=== PATIENT | female | born 1955 | race Caucasian/White ===

== ENCOUNTER 2018-02-16 20:52 | Observation (INO) ==
[2018-02-16 21:38] LABS: Basophils # 0.1 K/mcL (0.0-0.2); Basophils % 0.8 %; Eosinophils # 0.5 K/mcL (0.0-0.6); Eosinophils % 6.1 %; Hematocrit 34.5 % (35.3-44.9); Hemoglobin 11.7 g/dL (11.5-15.4); Immature Granulocytes % 0.2 % (0-4); Lymphocytes # 2.9 K/mcL (0.6-4.6); Lymphocytes % 35.3 %; Mean Corpuscular HGB Conc 33.9 g/dL (31.6-35.5); Mean Corpuscular Hemoglobin 31.6 pg (28.0-33.3); Mean Corpuscular Volume 93.2 fL (83.0-100.0); Mean Platelet Volume 9.2 fL (9.4-12.4); Monocytes # 0.7 K/mcL (0.0-1.3); Monocytes % 7.8 %; Neutrophils # 4.2 K/mcL (1.6-8.9); Platelet Count 236 K/mcL (140-400); Red Cell Distribution Width 12.7 % (11.5-14.5); Segmented Neutrophils % 49.8 %
[2018-02-16 21:52] LABS: Bilirubin,Urine Negative (Negative); Blood,Urine Negative (Negative); Clarity,Urine Clear (Clear); Color,Urine Yellow (Yellow); Glucose,Urine (UA) Normal (Normal); Ketones,Urine Negative (Negative); Leukocyte Esterase,Urine Negative (Negative); Nitrite,Urine Negative (Negative); Protein,Urine Negative (Neg-Trace); Specific Gravity,Urine 1.012 (1.010-1.025); Urobilinogen,Urine Normal (Normal)
[2018-02-16 21:56] LABS: Acetaminophen < 10 mcg/mL (10-20)
[2018-02-16 22:02] LABS: Amphetamine Screen,Urine Negative ng/mL (Cutoff=1000); Barbiturate Screen,Urine Negative ng/mL (Cutoff=200); Benzodiazepines Screen,Urine Positive ng/mL (Cutoff=200); Cannabinoid Screen,Urine Negative ng/mL (Cutoff = 50); Cocaine Screen,Urine Negative ng/mL (Cutoff= 300); Opiate Screen,Urine Negative ng/mL (Cutoff=300); Phencyclidine Screen,Urine Negative ng/mL (Cutoff=25)
[2018-02-16 22:04] LABS: BUN/Creatinine Ratio 20 (6-26); Blood Urea Nitrogen 15 mg/dL (8-23); Calcium 9.4 mg/dL (8.6-10.3); Carbon Dioxide 26 mEq/L (23-29); Chloride 95 mEq/L (98-107); Ethanol 204 mg/dL (Less than 10); Glucose 90 mg/dL (70-105); Osmolality,Calculated 276 (280-300); Potassium 4.2 mEq/L (3.5-5.1); Salicylate < 2.5 mg/dL (15.0-30.0); Sodium 133 mEq/L (136-145); eGFR For African Americans > 60 (> 60); eGFR For Non-African Americans > 60 (> 60)
--- NOTE | 2018-02-16 23:16 | Emergency Department Note ---
Disposition Clinical Impression: Suicidal ideation Disposition: Transfer Psychiatric Hosp Condition: Undetermined Referrals: NONE,PCP [Primary Care Provider] - Forms: ED Satisfaction Letter Psych HPI - General Chief Complaint: ED Psychiatric Symptoms Stated Complaint: si Time Seen by Provider: 02/16/18 20:59 Source: patient Mode of arrival: private vehicle Limitations: no limitations Nursing Notes Reviewed: Yes Vital Signs Reviewed: Yes - History of Present Illness HPI Narrative: 62-year-old patient with an extensive mental health history presents emergency department for suicidal ideation. Patient states that her dog had to be euthanized on Wednesday and since then she has been drinking heavily and today she had thoughts to harm herself and the tentative plan to just keep drinking alcohol until she was unable to wake up. Family friend brought her to emergency department for evaluation. Patient denies any recent illness. She does have a medical history of hypertension, however has mental health diagnosis of bipolar disorder and some sort of either schizophrenia or schizoaffective disorder, patient states she has at times had visual and auditory hallucinations and that she is on Risperdal for these things. Patient has a current psychiatrist Dr. Olvera whom she has followed with for quite some time. Pt complaint: suicidal ideation, feels depressed Onset (ago): day(s) Duration: constant, changing over time, getting worse History of similar episodes: Yes Improves with: none Worsens with: medication, alcohol Context: recent alcohol abuse Alleged intoxication: Yes (Unsure of consumption amount) Associated Psychiatric Symptoms: depression, suicidal ideation Associated symptoms: Reports: denies other symptoms Traumatic symptoms: denies traumatic injury Treatments prior to arrival: none Self harm or harm to others: admits thoughts of self harm, has plan - Related Data Home Medications Medication Instructions Recorded Confirmed Dextroamphetamine Sulfate 10 mg PO QID 04/29/17 04/29/17 [Dexedrine] Estradiol 2 mg PO DAILY 04/29/17 04/29/17 FLUoxetine HCl [Prozac] 40 mg PO DAILY 04/29/17 04/29/17 Gabapentin [Neurontin] 800 mg PO BID 04/29/17 04/29/17 Metoprolol [Lopressor] 25 mg PO BID 04/29/17 04/29/17 Ranitidine HCl [Zantac] 150 mg PO DAILY 04/29/17 04/29/17 Venlafaxine XR (24 HR) [Effexor XR] 150 mg PO DAILY 04/29/17 04/29/17 diazePAM [Valium] 5 mg PO BID 04/29/17 04/29/17 risperiDONE [Risperidone Odt] 3 mg PO DAILY 04/29/17 04/29/17 Previous Rx's Medication Instructions Recorded Tramadol HCl [Ultram] 50 mg PO QID PRN #14 tab 04/29/17 predniSONE [PredniSONE] 40 mg PO DAILY #10 tablet 04/29/17 Ciprofloxacin [Cipro] 500 mg PO BID #14 tablet 11/10/17 Phenazopyridine HCl [Pyridium] 200 mg PO TID #6 tab 11/10/17 Allergies Allergy/AdvReac Type Severity Reaction Status Date / Time Hydroxychloroquine AdvReac Vomiting Verified 11/10/17 11:17 NSAIDS (Non-Steroidal AdvReac Nausea Verified 11/10/17 11:17 Anti-Inflamma All systems ED: reviewed and negative except as stated. Review of Systems: As Per HPI Past Medical History - Past Medical History Attestation: Yes The following information was validated with the patient. 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 - Social History Smoking Status: Never smoker Smokeless Tobacco Status: No Alcohol use: Reports: occasionally Drug use: Reports: none Physical Exam - General Limitations: no limitations General appearance: alert, in no apparent distress, appears intoxicated - Head Head exam: atraumatic, normocephalic, normal inspection - Eye Eye exam: Present: normal appearance, PERRL, EOMI - ENT ENT exam: mucous membranes moist - Neck Neck exam: Present: normal inspection, full ROM, trachea midline - Chest Chest inspection: Present: normal inspection, symmetric chest wall rise - Respiratory Respiratory exam: Present: normal lung sounds bilaterally - Cardiovascular Cardiovascular exam: Present: regular rate, normal rhythm, normal heart sounds - Neurological Exam Neurological exam: Present: alert, oriented X3, CN II-XII intact - Psychiatric Psychiatric exam: Present: depressed, flat affect, suicidal ideation - Skin Skin exam: Present: warm, dry, intact, normal color Course Course Narrative: Patient is sitting on the cot, hunched over, wrapped in blankets. She does appear intoxicated, and does have a faint smell of alcohol. Basic labs reveal alcohol level of 204. Patient continues to state that she will harm herself because she just wants to go with her dog. She states the dog with the only thing that she had in the dog lived with her for 12 years and she just does not feel she can go without the dog. We will monitor labs, await alcohol level II drop below 75 and will have psychiatric services consult on her. Patient agreeable. - Reevaluation(s) Reevaluation #1: Patient has been sleeping soundly through the night. She is very alert and oriented. Blood alcohol level that recheck was 61. Patient under threshold to be evaluated by psychiatric services. She remains alert and oriented, no change in physical assessment. We will consult psychiatric services at this time. Time: 04:00 Reevaluation #2: Admitted to psychological services. They are trying to place at [facility] inpatient psych at this time. Will continue to hold in the ED. Denies needs, no change in assessment. Time: 06:18 Vital Signs Temperature 98 F 02/16/18 20:53 Pulse Rate 87 02/16/18 20:53 Respiratory Rate 18 02/16/18 20:53 Blood Pressure 144/77 02/16/18 20:53 O2 Sat by Pulse Oximetry 97 02/16/18 20:53 Temperature 98 F 02/16/18 20:53 Pulse Rate 78 02/17/18 01:03 Respiratory Rate 16 02/17/18 01:03 Blood Pressure 122/68 02/17/18 01:03 O2 Sat by Pulse Oximetry 98 02/17/18 01:03 Oxygen Delivery Oxygen Delivery Room Air Psych - Lab Data Result diagrams: 02/16/18 21:26 02/16/18 21:26 Lab Results 02/16/18 02/16/18 02/16/18 Range/Units 21:26 21:26 21:43 WBC 8.3 (4.3-11.1) K/mcL RBC 3.70 L (3.82-4.97) M/mcL Hgb 11.7 (11.5-15.4) g/dL Hct 34.5 L (35.3-44.9) % MCV 93.2 (83.0-100.0) fL MCH 31.6 (28.0-33.3) pg MCHC 33.9 (31.6-35.5) g/dL RDW 12.7 (11.5-14.5) % Plt Count 236 (140-400) K/mcL MPV 9.2 L (9.4-12.4) fL Immature Gran % 0.2 (0-4) % Seg Neutrophils % 49.8 % Lymphocytes % 35.3 % Monocytes % 7.8 % Eosinophils % 6.1 % Basophils % 0.8 % Neutrophils # 4.2 (1.6-8.9) K/mcL Lymphocytes # 2.9 (0.6-4.6) K/mcL Monocytes # 0.7 (0.0-1.3) K/mcL Eosinophils # 0.5 (0.0-0.6) K/mcL Basophils # 0.1 (0.0-0.2) K/mcL Sodium 133 L (136-145) mEq/L Potassium 4.2 (3.5-5.1) mEq/L Chloride 95 L (98-107) mEq/L Carbon Dioxide 26 (23-29) mEq/L BUN 15 (8-23) mg/dL Creatinine 0.75 (0.60-1.20) mg/dL Est GFR ( Amer) > 60 (> 60) Est GFR (Non-Af Amer) > 60 (> 60) BUN/Creatinine Ratio 20 (6-26) Glucose 90 (70-105) mg/dL Calculated Osmolality 276 L (280-300) Calcium 9.4 (8.6-10.3) mg/dL Urine Color Yellow (Yellow) Urine Clarity Clear (Clear) Urine pH 6.0 (5.0-8.0) pH Units Ur Specific [place] 1.012 (1.010-1.025) Urine Protein Negative (Neg-Trace) mg/dL Urine Glucose (UA) Normal (Normal) mg/dL Urine Ketones Negative (Negative) mg/dL Urine Blood Negative (Negative) Urine Nitrite Negative (Negative) Urine Bilirubin Negative (Negative) Urine Urobilinogen Normal (Normal) mg/dL Ur Leukocyte Esterase Negative (Negative) Ur Culture Indicated? NO (NO) Salicylates < 2.5 L (15.0-30.0) mg/dL Urine Opiates Screen (Wnprkn=917) ng/mL Acetaminophen < 10 L (10-20) mcg/mL Ur Barbiturates Screen (Cytvvq=189) ng/mL Ur Phencyclidine Scrn (Cutoff=25) ng/mL Ur Amphetamines Screen (Fmrdou=5966) ng/mL U Benzodiazepines Scrn (Kzxjxn=124) ng/mL Urine Cocaine Screen (Cutoff= 300) ng/mL U Marijuana (THC) Screen (Cutoff = 50) ng/mL Ethyl Alcohol 204 H (Less than 10) mg/dL 02/16/18 02/17/18 Range/Units 21:43 02:48 WBC (4.3-11.1) K/mcL RBC (3.82-4.97) M/mcL Hgb (11.5-15.4) g/dL Hct (35.3-44.9) % MCV (83.0-100.0) fL MCH (28.0-33.3) pg MCHC (31.6-35.5) g/dL RDW (11.5-14.5) % Plt Count (140-400) K/mcL MPV (9.4-12.4) fL Immature Gran % (0-4) % Seg Neutrophils % % Lymphocytes % % Monocytes % % Eosinophils % % Basophils % % Neutrophils # (1.6-8.9) K/mcL Lymphocytes # (0.6-4.6) K/mcL Monocytes # (0.0-1.3) K/mcL Eosinophils # (0.0-0.6) K/mcL Basophils # (0.0-0.2) K/mcL Sodium (136-145) mEq/L Potassium (3.5-5.1) mEq/L Chloride (98-107) mEq/L Carbon Dioxide (23-29) mEq/L BUN (8-23) mg/dL Creatinine (0.60-1.20) mg/dL Est GFR ( Amer) (> 60) Est GFR (Non-Af Amer) (> 60) BUN/Creatinine Ratio (6-26) Glucose (70-105) mg/dL Calculated Osmolality (280-300) Calcium (8.6-10.3) mg/dL Urine Color (Yellow) Urine Clarity (Clear) Urine pH (5.0-8.0) pH Units Ur Specific [place] (1.010-1.025) Urine Protein (Neg-Trace) mg/dL Urine Glucose (UA) (Normal) mg/dL Urine Ketones (Negative) mg/dL Urine Blood (Negative) Urine Nitrite (Negative) Urine Bilirubin (Negative) Urine Urobilinogen (Normal) mg/dL Ur Leukocyte Esterase (Negative) Ur Culture Indicated? (NO) Salicylates (15.0-30.0) mg/dL Urine Opiates Screen Negative (Wfuplh=108) ng/mL Acetaminophen (10-20) mcg/mL Ur Barbiturates Screen Negative (Ndpqdq=080) ng/mL Ur Phencyclidine Scrn Negative (Cutoff=25) ng/mL Ur Amphetamines Screen Negative (Mzfosi=5459) ng/mL U Benzodiazepines Scrn Positive H (Dobscn=380) ng/mL Urine Cocaine Screen Negative (Cutoff= 300) ng/mL U Marijuana (THC) Screen Negative (Cutoff = 50) ng/mL Ethyl Alcohol 61 H (Less than 10) mg/dL Psychiatric Medical Clearance - Medical Clearance Checklist Medical History: Dysuria (Inactive) Hip bursitis, left (Inactive) No Social History Section defined Current Vitals: Last Vital Signs Temp 98 F 02/16/18 20:53 Pulse 78 02/17/18 01:03 Resp 16 02/17/18 01:03 BP 122/68 02/17/18 01:03 Pulse Ox 98 02/17/18 01:03 Psychiatric Lab Panel: Drug Levels and Toxicity 02/16/18 02/16/18 02/17/18 21:26 21:43 02:48 Urine Opiates Screen Negative Acetaminophen < 10 L Ur Barbiturates Screen Negative Ur Phencyclidine Scrn Negative Ur Amphetamines Screen Negative U Benzodiazepines Scrn Positive H Urine Cocaine Screen Negative U Marijuana (THC) Screen Negative Ethyl Alcohol 204 H 61 H Abnormal Labs: Abnormal lab results RBC 3.70 M/mcL (3.82-4.97) L 02/16/18 21:26 Hct 34.5 % (35.3-44.9) L 02/16/18 21:26 MPV 9.2 fL (9.4-12.4) L 02/16/18 21: Sodium 133 mEq/L (136-145) L 02/16/18 21: Chloride 95 mEq/L (98-107) L 02/16/18 21:26 Calculated Osmolality 276 (280-300) L 02/16/18 21:26 Salicylates < 2.5 mg/dL (15.0-30.0) L 02/16/18 21:26 Acetaminophen < 10 mcg/mL (10-20) L 02/16/18 21:26 U Benzodiazepines Scrn Positive ng/mL (Goegid=166) H 02/16/18 21:43 Ethyl Alcohol 61 mg/dL (Less than 10) H 02/17/18 02:48 Statement of Medical Clearance: I have evaluated the patient, reviewed diagnostic information, and certify that the patient's medical condition is sufficiently stable that transfer to the psychiatric unit does not pose a significant risk of deterioration.
--- NOTE | 2018-02-17 04:13 | Emergency Department Note ---
Disposition Clinical Impression: Suicidal ideation Disposition: Transfer Psychiatric Hosp Condition: Undetermined Referrals: NONE,PCP [Primary Care Provider] - Forms: ED Satisfaction Letter General Adult HPI - General Chief complaint: ED Psychiatric Symptoms Stated complaint: si Time Seen by Provider: 02/16/18 20:59 Source: patient Mode of arrival: private vehicle Limitations: no limitations Nursing Notes Reviewed: Yes Vital Signs Reviewed: Yes - History of Present Illness Pain Scale: 10 - Related Data Home Medications Medication Instructions Recorded Confirmed Dextroamphetamine Sulfate 10 mg PO QID 04/29/17 04/29/17 [Dexedrine] Estradiol 2 mg PO DAILY 04/29/17 04/29/17 FLUoxetine HCl [Prozac] 40 mg PO DAILY 04/29/17 04/29/17 Gabapentin [Neurontin] 800 mg PO BID 04/29/17 04/29/17 Metoprolol [Lopressor] 25 mg PO BID 04/29/17 04/29/17 Ranitidine HCl [Zantac] 150 mg PO DAILY 04/29/17 04/29/17 Venlafaxine XR (24 HR) [Effexor XR] 150 mg PO DAILY 04/29/17 04/29/17 diazePAM [Valium] 5 mg PO BID 04/29/17 04/29/17 risperiDONE [Risperidone Odt] 3 mg PO DAILY 04/29/17 04/29/17 Previous Rx's Medication Instructions Recorded Tramadol HCl [Ultram] 50 mg PO QID PRN #14 tab 04/29/17 predniSONE [PredniSONE] 40 mg PO DAILY #10 tablet 04/29/17 Ciprofloxacin [Cipro] 500 mg PO BID #14 tablet 11/10/17 Phenazopyridine HCl [Pyridium] 200 mg PO TID #6 tab 11/10/17 Allergies Allergy/AdvReac Type Severity Reaction Status Date / Time Hydroxychloroquine AdvReac Vomiting Verified 11/10/17 11:17 NSAIDS (Non-Steroidal AdvReac Nausea Verified 11/10/17 11:17 Anti-Inflamma Past Medical History - Past Medical History Medical history: Reports: hypertension Surgical history: Reports: appendectomy, cholecystectomy, hysterectomy, other ( Laparoscopy 7, cyst removed from bowel.) Psychiatric history: Reports: bipolar, depression, schizophrenia 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 history - Social History Smoking Status: Never smoker Smokeless Tobacco Status: No Alcohol use: Reports: occasionally Drug use: Reports: none Physical Exam - General Limitations: no limitations General appearance: alert, in no apparent distress, appears intoxicated Course Vital Signs Temperature 98 F 02/16/18 20:53 Pulse Rate 87 02/16/18 20:53 Respiratory Rate 18 02/16/18 20:53 Blood Pressure 144/77 02/16/18 20:53 O2 Sat by Pulse Oximetry 97 02/16/18 20:53 Temperature 98 F 02/16/18 20:53 Pulse Rate 78 02/17/18 01:03 Respiratory Rate 16 02/17/18 01:03 Blood Pressure 122/68 02/17/18 01:03 O2 Sat by Pulse Oximetry 98 02/17/18 01:03 Oxygen Delivery Oxygen Delivery Room Air Medical Decision Making - Lab Data Result diagrams: 02/16/18 21:26 02/16/18 21:26 Lab Results 02/16/18 02/16/18 02/16/18 Range/Units 21:26 21:26 21:43 WBC 8.3 (4.3-11.1) K/mcL RBC 3.70 L (3.82-4.97) M/mcL Hgb 11.7 (11.5-15.4) g/dL Hct 34.5 L (35.3-44.9) % MCV 93.2 (83.0-100.0) fL MCH 31.6 (28.0-33.3) pg MCHC 33.9 (31.6-35.5) g/dL RDW 12.7 (11.5-14.5) % Plt Count 236 (140-400) K/mcL MPV 9.2 L (9.4-12.4) fL Immature Gran % 0.2 (0-4) % Seg Neutrophils % 49.8 % Lymphocytes % 35.3 % Monocytes % 7.8 % Eosinophils % 6.1 % Basophils % 0.8 % Neutrophils # 4.2 (1.6-8.9) K/mcL Lymphocytes # 2.9 (0.6-4.6) K/mcL Monocytes # 0.7 (0.0-1.3) K/mcL Eosinophils # 0.5 (0.0-0.6) K/mcL Basophils # 0.1 (0.0-0.2) K/mcL Sodium 133 L (136-145) mEq/L Potassium 4.2 (3.5-5.1) mEq/L Chloride 95 L (98-107) mEq/L Carbon Dioxide 26 (23-29) mEq/L BUN 15 (8-23) mg/dL Creatinine 0.75 (0.60-1.20) mg/dL Est GFR ( Amer) > 60 (> 60) Est GFR (Non-Af Amer) > 60 (> 60) BUN/Creatinine Ratio 20 (6-26) Glucose 90 (70-105) mg/dL Calculated Osmolality 276 L (280-300) Calcium 9.4 (8.6-10.3) mg/dL TSH (0.340-5.600) mcIU/mL Urine Color Yellow (Yellow) Urine Clarity Clear (Clear) Urine pH 6.0 (5.0-8.0) pH Units Ur Specific [place] 1.012 (1.010-1.025) Urine Protein Negative (Neg-Trace) mg/dL Urine Glucose (UA) Normal (Normal) mg/dL Urine Ketones Negative (Negative) mg/dL Urine Blood Negative (Negative) Urine Nitrite Negative (Negative) Urine Bilirubin Negative (Negative) Urine Urobilinogen Normal (Normal) mg/dL Ur Leukocyte Esterase Negative (Negative) Ur Culture Indicated? NO (NO) Salicylates < 2.5 L (15.0-30.0) mg/dL Urine Opiates Screen (Bhnkdh=939) ng/mL Acetaminophen < 10 L (10-20) mcg/mL Ur Barbiturates Screen (Qeexih=980) ng/mL Ur Phencyclidine Scrn (Cutoff=25) ng/mL Ur Amphetamines Screen (Nobiyf=1918) ng/mL U Benzodiazepines Scrn (Qlucde=648) ng/mL Urine Cocaine Screen (Cutoff= 300) ng/mL U Marijuana (THC) Screen (Cutoff = 50) ng/mL Ethyl Alcohol 204 H (Less than 10) mg/dL 02/16/18 02/17/18 Range/Units 21:43 02:48 WBC (4.3-11.1) K/mcL RBC (3.82-4.97) M/mcL Hgb (11.5-15.4) g/dL Hct (35.3-44.9) % MCV (83.0-100.0) fL MCH (28.0-33.3) pg MCHC (31.6-35.5) g/dL RDW (11.5-14.5) % Plt Count (140-400) K/mcL MPV (9.4-12.4) fL Immature Gran % (0-4) % Seg Neutrophils % % Lymphocytes % % Monocytes % % Eosinophils % % Basophils % % Neutrophils # (1.6-8.9) K/mcL Lymphocytes # (0.6-4.6) K/mcL Monocytes # (0.0-1.3) K/mcL Eosinophils # (0.0-0.6) K/mcL Basophils # (0.0-0.2) K/mcL Sodium (136-145) mEq/L Potassium (3.5-5.1) mEq/L Chloride (98-107) mEq/L Carbon Dioxide (23-29) mEq/L BUN (8-23) mg/dL Creatinine (0.60-1.20) mg/dL Est GFR ( Amer) (> 60) Est GFR (Non-Af Amer) (> 60) BUN/Creatinine Ratio (6-26) Glucose (70-105) mg/dL Calculated Osmolality (280-300) Calcium (8.6-10.3) mg/dL TSH 11.487 H (0.340-5.600) mcIU/mL Urine Color (Yellow) Urine Clarity (Clear) Urine pH (5.0-8.0) pH Units Ur Specific [place] (1.010-1.025) Urine Protein (Neg-Trace) mg/dL Urine Glucose (UA) (Normal) mg/dL Urine Ketones (Negative) mg/dL Urine Blood (Negative) Urine Nitrite (Negative) Urine Bilirubin (Negative) Urine Urobilinogen (Normal) mg/dL Ur Leukocyte Esterase (Negative) Ur Culture Indicated? (NO) Salicylates (15.0-30.0) mg/dL Urine Opiates Screen Negative (Caxklb=913) ng/mL Acetaminophen (10-20) mcg/mL Ur Barbiturates Screen Negative (Vwrlib=989) ng/mL Ur Phencyclidine Scrn Negative (Cutoff=25) ng/mL Ur Amphetamines Screen Negative (Cnunkm=7575) ng/mL U Benzodiazepines Scrn Positive H (Yhyxxy=077) ng/mL Urine Cocaine Screen Negative (Cutoff= 300) ng/mL U Marijuana (THC) Screen Negative (Cutoff = 50) ng/mL Ethyl Alcohol 61 H (Less than 10) mg/dL Attestation Statement - Attestation Attestation: I, Wilman Cat MD, personally evaluated this patient and discussed their management with the midlevel provicer, PAC/OPERATOR ENGINEER. I reviewed the midlevel provider 's note and agree with the documented findings, medical decision making, and plan of care. 62-year-old female presents to the emergency department with a complaint of suicidal ideation and depression. Patient states that she had to put her gallbladder sleep about 2 weeks ago and ever since then she has been drinking daily. She has had increasing depression and suicidal thoughts. She has a prior history of suicidal thoughts and depression and states that she is on a lot of medications for her nerves. On examination patient is a well-developed well-nourished elderly female in no acute distress. She is alert and oriented 3. There is no cyanosis or diaphoresis. Breath sounds are clear and equal bilaterally. Heart regular rate and rhythm. Abdomen is soft and nontender with normal bowel sounds. Labs reviewed. Patient medically cleared for psychiatric evaluation. [address] psychiatry service was consulted to evaluate patient in the emergency department. Patient was evaluated and at shift change is awaiting arrangements for psychiatric bed placement. Patient signed out to the oncoming dayshift physician, Dr. Royal.
[2018-02-17] MEDS ORDERED: *HR* LORazepam 1 MG TABLET PO ONE (04:49)
[2018-02-17 06:20] LABS: Thyroid Stimulating Hormone 11.487 mcIU/mL (0.340-5.600)
--- NOTE | 2018-02-17 07:22 | Emergency Department Note ---
Disposition Clinical Impression: Suicidal ideation, ETOH abuse Disposition: Admitted As Inpatient Condition: Fair Referrals: NONE,PCP [Primary Care Provider] - Forms: ED Satisfaction Letter Time of Disposition: 11:26 General Adult HPI - General Chief complaint: ED Psychiatric Symptoms Stated complaint: si Time Seen by Provider: 02/16/18 20:59 Source: patient Mode of arrival: private vehicle Limitations: no limitations - History of Present Illness Pain Scale: 10 - Related Data Home Medications Medication Instructions Recorded Confirmed Dextroamphetamine Sulfate 10 mg PO QID 04/29/17 02/17/18 [Dexedrine] Gabapentin [Neurontin] 800 mg PO BID 04/29/17 02/17/18 Metoprolol [Lopressor] 25 mg PO BID 04/29/17 02/17/18 diazePAM [Valium] 5 mg PO BID PRN 04/29/17 02/17/18 Desvenlafaxine Succinate [Pristiq 50 mg PO DAILY 02/17/18 02/17/18 ER] Omeprazole [PriLOSEC] 20 mg PO DAILY 02/17/18 02/17/18 risperiDONE [RisperDAL] 1.5 mg PO DAILY 02/17/18 02/17/18 Allergies Allergy/AdvReac Type Severity Reaction Status Date / Time Hydroxychloroquine AdvReac Vomiting Verified 02/17/18 11:10 NSAIDS (Non-Steroidal AdvReac Nausea Verified 02/17/18 11:10 Anti-Inflamma Past Medical History - Past Medical History Medical history: Reports: hypertension Surgical history: Reports: appendectomy, cholecystectomy, hysterectomy, other ( Laparoscopy 7, cyst removed from bowel.) Psychiatric history: Reports: bipolar, depression, schizophrenia PAPER CONTROL CLERK history: Reports: no PAPER CONTROL CLERK history - Social History Smoking Status: Never smoker Smokeless Tobacco Status: No Alcohol use: Reports: occasionally Drug use: Reports: none Physical Exam - General Limitations: no limitations General appearance: alert, in no apparent distress, appears intoxicated Course Course Narrative: Patient was taken in sign out from the daytime physician in the nighttime physician Dr. Cat. Patient presented here with suicidal ideation with chronic history of this at this point. She is currently in the process of being placed. She was initially intoxicated not completely oriented and acting appropriately at the bedside. Repeat evaluation by myself shows patient distress she interacts appropriately at this time. Labs were drawn at the request of the outside facility that is attempting to accept the patient for placement. Otherwise she will be monitoring emergency room until placement is established. No acute intervention is required at this point. Patient has been accommodating for all intervention and treatment. See previous documentation of the physical exam medical intervention other providers notes. Patient is otherwise stable. - Reevaluation(s) Reevaluation #1: Psychiatric facility contacted me to discuss the patient's medical intervention. They are concerned about placement considering the patient downplayed her alcohol use. Her liver function testing is elevated facilities are deferring considering she was intoxicated and does describe using alcohol. They are concerned that she may go into withdrawal's. Patient will be admitted for management our facility until she is through the active concerning state of potential alcohol withdrawal and then patient will be transferred to the outside facility for further management. Hospitalist was paged at this time for admission Time: 10:58 Reevaluation #2: Patient is accepted by Dr. Nash. He will evaluate and manage the patient is delirium tremens she does not go into DTs and then will discuss and put together for transfer to the psychiatric facility for admission evaluation Time: 11:26 Vital Signs Temperature 98 F 02/16/18 20:53 Pulse Rate 87 02/16/18 20:53 Respiratory Rate 18 02/16/18 20:53 Blood Pressure 144/77 02/16/18 20:53 O2 Sat by Pulse Oximetry 97 02/16/18 20:53 Temperature 97.9 F 02/17/18 04:30 Pulse Rate 87 02/17/18 08:47 Respiratory Rate 18 02/17/18 08:47 Blood Pressure 121/69 02/17/18 08:47 O2 Sat by Pulse Oximetry 99 02/17/18 08:47 Oxygen Delivery Oxygen Delivery Room Air Medical Decision Making - MDM Narrative Medical decision making narrative: Suicidal ideation, alcohol intoxication - Medical Records Medical records reviewed: Yes I reviewed the patient's medical records. - Lab Data Lab results reviewed: Yes I reviewed the patient's lab results. Result diagrams: 02/16/18 21:26 02/16/18 21:26 Lab Results 02/16/18 02/16/18 02/16/18 Range/Units 21:26 21:26 21:43 WBC 8.3 (4.3-11.1) K/mcL RBC 3.70 L (3.82-4.97) M/mcL Hgb 11.7 (11.5-15.4) g/dL Hct 34.5 L (35.3-44.9) % MCV 93.2 (83.0-100.0) fL MCH 31.6 (28.0-33.3) pg MCHC 33.9 (31.6-35.5) g/dL RDW 12.7 (11.5-14.5) % Plt Count 236 (140-400) K/mcL MPV 9.2 L (9.4-12.4) fL Immature Gran % 0.2 (0-4) % Seg Neutrophils % 49.8 % Lymphocytes % 35.3 % Monocytes % 7.8 % Eosinophils % 6.1 % Basophils % 0.8 % Neutrophils # 4.2 (1.6-8.9) K/mcL Lymphocytes # 2.9 (0.6-4.6) K/mcL Monocytes # 0.7 (0.0-1.3) K/mcL Eosinophils # 0.5 (0.0-0.6) K/mcL Basophils # 0.1 (0.0-0.2) K/mcL Sodium 133 L (136-145) mEq/L Potassium 4.2 (3.5-5.1) mEq/L Chloride 95 L (98-107) mEq/L Carbon Dioxide 26 (23-29) mEq/L BUN 15 (8-23) mg/dL Creatinine 0.75 (0.60-1.20) mg/dL Est GFR ( Amer) > 60 (> 60) Est GFR (Non-Af Amer) > 60 (> 60) BUN/Creatinine Ratio 20 (6-26) Glucose 90 (70-105) mg/dL Calculated Osmolality 276 L (280-300) Calcium 9.4 (8.6-10.3) mg/dL Total Bilirubin 0.4 (0.3-1.0) mg/dL Direct Bilirubin 0.1 (0.0-0.2) mg/dL Indirect Bilirubin 0.3 (0.0-1.2) mg/dL AST 100 H (13-39) Units/L ALT 57 H (7-52) Units/L Alkaline Phosphatase 71 (34-104) Units/L Ammonia (16-53) mcmol/L Serum Total Protein 7.4 (6.4-8.9) g/dL Albumin 4.6 (3.5-5.7) g/dL Globulin 2.8 (2.4-3.5) g/dL Albumin/Globulin Ratio 1.6 (1.1-2.2) TSH (0.340-5.600) mcIU/mL Urine Color Yellow (Yellow) Urine Clarity Clear (Clear) Urine pH 6.0 (5.0-8.0) pH Units Ur Specific [place] 1.012 (1.010-1.025) Urine Protein Negative (Neg-Trace) mg/dL Urine Glucose (UA) Normal (Normal) mg/dL Urine Ketones Negative (Negative) mg/dL Urine Blood Negative (Negative) Urine Nitrite Negative (Negative) Urine Bilirubin Negative (Negative) Urine Urobilinogen Normal (Normal) mg/dL Ur Leukocyte Esterase Negative (Negative) Ur Culture Indicated? NO (NO) Salicylates < 2.5 L (15.0-30.0) mg/dL Urine Opiates Screen (Dbyddj=010) ng/mL Acetaminophen < 10 L (10-20) mcg/mL Ur Barbiturates Screen (Brlkfg=039) ng/mL Ur Phencyclidine Scrn (Cutoff=25) ng/mL Ur Amphetamines Screen (Hoxzvn=6360) ng/mL U Benzodiazepines Scrn (Ysfxbi=029) ng/mL Urine Cocaine Screen (Cutoff= 300) ng/mL U Marijuana (THC) Screen (Cutoff = 50) ng/mL Ethyl Alcohol 204 H (Less than 10) mg/dL Specimen Rejected 02/16/18 02/17/18 02/17/18 Range/Units 21:43 02:48 07:23 WBC (4.3-11.1) K/mcL RBC (3.82-4.97) M/mcL Hgb (11.5-15.4) g/dL Hct (35.3-44.9) % MCV (83.0-100.0) fL MCH (28.0-33.3) pg MCHC (31.6-35.5) g/dL RDW (11.5-14.5) % Plt Count (140-400) K/mcL MPV (9.4-12.4) fL Immature Gran % (0-4) % Seg Neutrophils % % Lymphocytes % % Monocytes % % Eosinophils % % Basophils % % Neutrophils # (1.6-8.9) K/mcL Lymphocytes # (0.6-4.6) K/mcL Monocytes # (0.0-1.3) K/mcL Eosinophils # (0.0-0.6) K/mcL Basophils # (0.0-0.2) K/mcL Sodium (136-145) mEq/L Potassium (3.5-5.1) mEq/L Chloride (98-107) mEq/L Carbon Dioxide (23-29) mEq/L BUN (8-23) mg/dL Creatinine (0.60-1.20) mg/dL Est GFR ( Amer) (> 60) Est GFR (Non-Af Amer) (> 60) BUN/Creatinine Ratio (6-26) Glucose (70-105) mg/dL Calculated Osmolality (280-300) Calcium (8.6-10.3) mg/dL Total Bilirubin (0.3-1.0) mg/dL Direct Bilirubin (0.0-0.2) mg/dL Indirect Bilirubin (0.0-1.2) mg/dL AST (13-39) Units/L ALT (7-52) Units/L Alkaline Phosphatase (34-104) Units/L Ammonia (16-53) mcmol/L Serum Total Protein (6.4-8.9) g/dL Albumin (3.5-5.7) g/dL Globulin (2.4-3.5) g/dL Albumin/Globulin Ratio (1.1-2.2) TSH 11.487 H (0.340-5.600) mcIU/mL Urine Color (Yellow) Urine Clarity (Clear) Urine pH (5.0-8.0) pH Units Ur Specific [place] (1.010-1.025) Urine Protein (Neg-Trace) mg/dL Urine Glucose (UA) (Normal) mg/dL Urine Ketones (Negative) mg/dL Urine Blood (Negative) Urine Nitrite (Negative) Urine Bilirubin (Negative) Urine Urobilinogen (Normal) mg/dL Ur Leukocyte Esterase (Negative) Ur Culture Indicated? (NO) Salicylates (15.0-30.0) mg/dL Urine Opiates Screen Negative (Geehzg=244) ng/mL Acetaminophen (10-20) mcg/mL Ur Barbiturates Screen Negative (Ugjmde=327) ng/mL Ur Phencyclidine Scrn Negative (Cutoff=25) ng/mL Ur Amphetamines Screen Negative (Twfuan=0912) ng/mL U Benzodiazepines Scrn Positive H (Brwxbe=971) ng/mL Urine Cocaine Screen Negative (Cutoff= 300) ng/mL U Marijuana (THC) Screen Negative (Cutoff = 50) ng/mL Ethyl Alcohol 61 H (Less than 10) mg/dL Specimen Rejected Hemolyzed 02/17/18 Range/Units 08:09 WBC (4.3-11.1) K/mcL RBC (3.82-4.97) M/mcL Hgb (11.5-15.4) g/dL Hct (35.3-44.9) % MCV (83.0-100.0) fL MCH (28.0-33.3) pg MCHC (31.6-35.5) g/dL RDW (11.5-14.5) % Plt Count (140-400) K/mcL MPV (9.4-12.4) fL Immature Gran % (0-4) % Seg Neutrophils % % Lymphocytes % % Monocytes % % Eosinophils % % Basophils % % Neutrophils # (1.6-8.9) K/mcL Lymphocytes # (0.6-4.6) K/mcL Monocytes # (0.0-1.3) K/mcL Eosinophils # (0.0-0.6) K/mcL Basophils # (0.0-0.2) K/mcL Sodium (136-145) mEq/L Potassium (3.5-5.1) mEq/L Chloride (98-107) mEq/L Carbon Dioxide (23-29) mEq/L BUN (8-23) mg/dL Creatinine (0.60-1.20) mg/dL Est GFR ( Amer) (> 60) Est GFR (Non-Af Amer) (> 60) BUN/Creatinine Ratio (6-26) Glucose (70-105) mg/dL Calculated Osmolality (280-300) Calcium (8.6-10.3) mg/dL Total Bilirubin (0.3-1.0) mg/dL Direct Bilirubin (0.0-0.2) mg/dL Indirect Bilirubin (0.0-1.2) mg/dL AST (13-39) Units/L ALT (7-52) Units/L Alkaline Phosphatase (34-104) Units/L Ammonia 33 (16-53) mcmol/L Serum Total Protein (6.4-8.9) g/dL Albumin (3.5-5.7) g/dL Globulin (2.4-3.5) g/dL Albumin/Globulin Ratio (1.1-2.2) TSH (0.340-5.600) mcIU/mL Urine Color (Yellow) Urine Clarity (Clear) Urine pH (5.0-8.0) pH Units Ur Specific [place] (1.010-1.025) Urine Protein (Neg-Trace) mg/dL Urine Glucose (UA) (Normal) mg/dL Urine Ketones (Negative) mg/dL Urine Blood (Negative) Urine Nitrite (Negative) Urine Bilirubin (Negative) Urine Urobilinogen (Normal) mg/dL Ur Leukocyte Esterase (Negative) Ur Culture Indicated? (NO) Salicylates (15.0-30.0) mg/dL Urine Opiates Screen (Qutrgz=870) ng/mL Acetaminophen (10-20) mcg/mL Ur Barbiturates Screen (Ayjfnz=041) ng/mL Ur Phencyclidine Scrn (Cutoff=25) ng/mL Ur Amphetamines Screen (Ekcmtu=6071) ng/mL U Benzodiazepines Scrn (Omejry=592) ng/mL Urine Cocaine Screen (Cutoff= 300) ng/mL U Marijuana (THC) Screen (Cutoff = 50) ng/mL Ethyl Alcohol (Less than 10) mg/dL Specimen Rejected
[2018-02-17 09:06] LABS: Alanine Aminotransferase 57 Units/L (7-52); Albumin 4.6 g/dL (3.5-5.7); Albumin/Globulin Ratio 1.6 (1.1-2.2); Alkaline Phosphatase 71 Units/L (34-104); Aspartate Amino Transferase 100 Units/L (13-39); Bilirubin,Direct 0.1 mg/dL (0.0-0.2); Bilirubin,Indirect 0.3 mg/dL (0.0-1.2); Bilirubin,Total 0.4 mg/dL (0.3-1.0); Globulin 2.8 g/dL (2.4-3.5); Total Protein 7.4 g/dL (6.4-8.9)
[2018-02-17] MEDS ORDERED: Naloxone 0.4 MG/ML INJ IVP PRN (12:24)
[2018-02-17] MEDS ORDERED: *HR* LORazepam 2 MG/ML VIAL IVP PRN (12:24)
--- NOTE | 2018-02-17 12:35 | Internal Med History&Physical ---
Date of Encounter: 02/17/18 Time of Encounter: 12:33 Internal Medicine - H&P: HPI Admitted From: Home Plans for Post Hospital Care: Transfer Psych Facility History of present illness: Ms. Mckeon is a 62 year old female with history of hypertension, multiple psych disorders such as bipolar, seasonal affective, depression with suicidal ideation in the past but no attempt came to emergency room with concern of having suicidal ideation today morning. She lost her dog few weeks ago and thinks she age and depression. She does not have close family support. In ER abnormal lab such as raised alcohol level, raised LFT where noticed. There is no past lab to compare with. She never had history of alcohol abuse but started to drink recently as she lost her dog. No history of DVTs in the past. She is also not on active DTs. ER physician plan to transfer inpatient psych facility. Psych facility was concerned about placement considering the patient downplayed her alcohol use. Her liver function testing is elevated facilities are deferring considering she was intoxicated and does describe using alcohol. They are concerned that she may go into withdrawal's. Therefore ER physician called on-call hospitalists for further management and medical clearance and transfer to psych facility eventually. Patient denies headache, dizziness, fever, chills, nausea, vomiting, chest pain , shortness of breath, abdominal pain, urinary or bowel complaint. Past Med Surg Social Fam HX - Past Medical History Medical history: hypertension Psychiatric history: bipolar, depression, schizophrenia - Past Surgical History Surgical History: appendectomy, cholecystectomy, hysterectomy, other ( Laparoscopy 7, cyst removed from bowel.) - Social History Smoking Status: Never smoker Smokeless Tobacco Status: No Alcohol use: occasionally Drug use: none Internal Medicine - H&P: Meds Dextroamphetamine Sulfate [Dexedrine] 10 mg PO QID 04/29/17 [History] Gabapentin [Neurontin] 800 mg PO BID 04/29/17 [History] Metoprolol [Lopressor] 25 mg PO BID 04/29/17 [History] diazePAM [Valium] 5 mg PO BID PRN 04/29/17 [History] Desvenlafaxine Succinate [Pristiq ER] 50 mg PO DAILY 02/17/18 [History] Omeprazole [PriLOSEC] 20 mg PO DAILY 02/17/18 [History] risperiDONE [RisperDAL] 1.5 mg PO DAILY 02/17/18 [History] 3 Allergy/AdvReac Type Severity Reaction Status Date / Time Hydroxychloroquine AdvReac Vomiting Verified 02/17/18 11:10 NSAIDS (Non-Steroidal AdvReac Nausea Verified 02/17/18 11:10 Anti-Inflamma All Systems PM: A 10-system review of systems was performed and is negative for pertinent findings except as documented above in the HPI. - Constitutional Vitals: Temp Pulse Resp BP Pulse Ox 97.9 F 87 20 118/74 99 02/17/18 04:30 02/17/18 08:47 02/17/18 12:06 02/17/18 12:06 02/17/18 08:47 Exam: General appearance: No acute distress, A&O X 3. His slow speech. She appeared depressed Head exam: Atraumatic Eye exam: EOMI, PERRLA ENT exam: Moist oral mucosa Neck nontender, supple Respiratory exam: Clear to auscultation bilaterally Cardiovascular exam: Regular rate and rhythm, no systolic murmur Abdominal exam: Soft, nontender, nondistended, positive bowel sounds Extremities exam: No calf tenderness, no pedal edema Present: Skin-no rash, warm, dry, intact Neurological exam: Alert, awake, oriented 3, CN II-XII intact, no focal deficits. No facial droop. Normal speech. Normal gait. Romberg sign negative Internal Med - H&P Results - Labs CBC & Chem 7: 02/16/18 21:26 02/16/18 21:26 - Assessment and plan (1) ETOH abuse Current Visit: Yes Status: Acute Assessment and plan: Recently started to use alcohol. Raised alcohol level but no active DTs at this time. Will admit patient for CIWA protocol. Repeat alcohol level. Folic acid and thiamine supplementation. (2) Suicidal ideation Current Visit: Yes Status: Acute Assessment and plan: Patient presented with suicidal ideation but denies at present. Will continue suicidal precaution. Once patient medically cleared then will transfer to psych facility. ER physician already did contact to psych facility. He should not his underlying multiple psych disorder. Continue home medication. (3) Elevated LFTs Current Visit: Yes Status: Acute Assessment and plan: Newly diagnosed. There are no labs to compare with. Need evaluation. Repeat LFT in the morning. Hepatitis panel, liver ultrasound. No acute abdomen. No icterus. Avoid hepatotoxic medicine. Close monitoring. (4) Hypertension Current Visit: Yes Status: Acute Assessment and plan: Close monitoring. Continue home medicine Qualifiers: Hypertension type: essential hypertension Qualified Code(s): I10 - Essential (primary) hypertension (5) Hypothyroidism Current Visit: Yes Status: Acute Assessment and plan: Newly diagnosed. Could be due to psych medication. Will order T4 and his start low-dose Synthroid. Patient needs to follow with PCP on OPD basis. Qualifiers: Hypothyroidism type: acquired Qualified Code(s): E03.9 - Hypothyroidism, unspecified (6) DVT prophylaxis Current Visit: Yes Status: Acute Assessment and plan: SCDs - Time Spent With Patient Total time spent is greater than 50% in coordination of care (as documented) at patient's floor/unit and/or counseling patient: 25 - 35 minutes
[2018-02-17 12:58] LABS: Albumin 4.6 g/dL (3.5-5.7); Albumin/Globulin Ratio 1.7 (1.1-2.2); Bilirubin,Direct 0.1 mg/dL (0.0-0.2); Bilirubin,Indirect 0.5 mg/dL (0.0-1.2); Bilirubin,Total 0.6 mg/dL (0.3-1.0); Globulin 2.7 g/dL (2.4-3.5); Magnesium 1.8 mg/dL (1.6-2.6); Total Protein 7.3 g/dL (6.4-8.9)
[2018-02-17] MEDS: Gabapentin 400 MG CAPSULE PO SCH (21:06)
[2018-02-17] MEDS: RisperiDAL 3 MG TABLET PO SCH (21:07)
[2018-02-17] MEDS: diazePAM 5 MG TABLET PO PRN (21:17)
[2018-02-18 06:03] LABS: Basophils # 0.1 K/mcL (0.0-0.2); Basophils % 0.8 %; Eosinophils # 0.8 K/mcL (0.0-0.6); Eosinophils % 11.9 %; Hematocrit 37.2 % (35.3-44.9); Hemoglobin 12.4 g/dL (11.5-15.4); Immature Granulocytes % 0.3 % (0-4); Lymphocytes # 2.2 K/mcL (0.6-4.6); Mean Corpuscular HGB Conc 33.3 g/dL (31.6-35.5); Mean Corpuscular Volume 96.1 fL (83.0-100.0); Mean Platelet Volume 9.7 fL (9.4-12.4); Monocytes # 0.6 K/mcL (0.0-1.3); Monocytes % 8.7 %; Neutrophils # 2.9 K/mcL (1.6-8.9); Platelet Count 249 K/mcL (140-400); Red Blood Count 3.87 M/mcL (3.82-4.97); Red Cell Distribution Width 13.2 % (11.5-14.5); Segmented Neutrophils % 44.3 %
[2018-02-18 06:18] LABS: Alanine Aminotransferase 35 Units/L (7-52); Albumin 4.2 g/dL (3.5-5.7); Albumin/Globulin Ratio 1.6 (1.1-2.2); Alkaline Phosphatase 61 Units/L (34-104); Aspartate Amino Transferase 27 Units/L (13-39); BUN/Creatinine Ratio 20 (6-26); Blood Urea Nitrogen 16 mg/dL (8-23); Calcium 9.7 mg/dL (8.6-10.3); Carbon Dioxide 26 mEq/L (23-29); Chloride 101 mEq/L (98-107); Chol/HDL Ratio 3.1 (0-4.9); Cholesterol 267 mg/dL (< 200); Ethanol < 10 mg/dL (Less than 10); Globulin 2.6 g/dL (2.4-3.5); Glucose 110 mg/dL (70-105); HDL Cholesterol 87 mg/dL (40-59); LDL Cholesterol,Calculated 148 mg/dL (0-99); Osmolality,Calculated 286 (280-300); Sodium 137 mEq/L (136-145); Total Protein 6.8 g/dL (6.4-8.9); Triglycerides 160 mg/dL (< 150); eGFR For African Americans > 60 (> 60); eGFR For Non-African Americans > 60 (> 60)
[2018-02-18] MEDS ORDERED: Levothyroxine 25 MCG TABLET PO SCH (06:30)
[2018-02-18] MEDS: Gabapentin 400 MG CAPSULE PO SCH ×2 (08:16→21:11)
[2018-02-18] MEDS: Venlafaxine XR (24 HR) 75 MG CAP.ER.24H PO SCH (08:16)
[2018-02-18] MEDS: Folic Acid 1 MG TABLET PO SCH (08:17)
[2018-02-18] MEDS: Thiamine (B-1) 100 MG TABLET PO SCH (08:17)
[2018-02-18] MEDS ORDERED: RisperiDAL 3 MG TABLET PO SCH (09:00)
--- NOTE | 2018-02-18 10:50 | Internal Med Progress Note ---
Date of Encounter: 02/18/18 Time of Encounter: 10:47 - Assessment and plan (1) Suicidal ideation Current Visit: Yes Status: Acute Assessment and plan: Situational depression with a history of major depressive disorder along with his documented potentials schizophrenic disorder. Psychiatry is consulted and an area to evaluate the patient. She denies having active suicidal thoughts but does feel that life is not worth living. She also has a super elevated TSH which she is not aware of. She does state that she has a mother with a family history of hypothyroidism and she was on Synthroid. We have initiated Synthroid here but we may have to up the doses based on her weight I discuss it with pharmacy and we will go up to 50 g of Synthroid daily. She will need a TSH checked within 6 weeks of this dose adjustment by her primary care physician and the patient was made aware of this. I also explained to her that this medication is to be taken every morning on an empty stomach at least 1 hour before breakfast and no other medications are to be taken along with this drug. She verbalizes understanding (2) ETOH abuse Current Visit: Yes Status: Acute Assessment and plan: CIWA scores are low. Last number was 3 as per the nursing staff. We will cautiously continue to monitor her because she already started having some tremors and the timing currently puts her at a higher risk for going into withdrawals. She does drink one bottle of wine every single day and her last drink was roughly over 48 hours ago. We will continue to monitor carefully. (3) Elevated LFTs Current Visit: Yes Status: Acute Assessment and plan: Most likely from the alcohol abuse. They are nicely improving with hydration. Avoid hepatotoxic medicine. Close monitoring. (4) Hypertension Current Visit: Yes Status: Acute Assessment and plan: Close monitoring. Continue home medicine Qualifiers: Hypertension type: essential hypertension Qualified Code(s): I10 - Essential (primary) hypertension (5) DVT prophylaxis Current Visit: Yes Status: Acute Assessment and plan: SCDs (6) Hypothyroidism Current Visit: Yes Status: Acute Assessment and plan: Newly diagnosed, adjust Synthroid to 50 g daily. Will need outpatient TSH in 6 weeks Qualifiers: Hypothyroidism type: acquired Qualified Code(s): E03.9 - Hypothyroidism, unspecified - Time Spent With Patient Total time spent is greater than 50% in coordination of care (as documented) at patient's floor/unit and/or counseling patient: 25 - 35 minutes - Subjective Interval history: Patient continues to have a flat affect and minimal eye contact. She states that she has been extremely depressed since January 31 when her dog and has been drinking 1 bottle of wine every day ever since her last drink was just on the day when she arrived to the ER. She has had some shaking of her hands which is beginning to start but her CIWA scores have been on the lower side at least for now. She does not talk much and is difficult to extract a history out of her. She was resting comfortably when I walked into the room he did she denies actively being suicidal but does have extremely depressive thoughts and has felt that life is worthless and psychiatry is aware of this patient and have not yet evaluated. - Constitutional Vitals: Temp Pulse Resp BP Pulse Ox 98.3 F 63 16 112/82 95 02/18/18 08:09 02/18/18 08:09 02/18/18 08:09 02/18/18 08:09 02/18/18 08:09 Exam: GENERAL: Alert, flat affect, difficult to extract history EYES: PERRLA, EOMI EARS: External ears normal, canals clear OROPHARYNX: Lips, mucosa, and tongue normal. Teeth and gums normal. Oropharynx normal. NECK: No jugulovenous distention, No carotid bruits, Carotid pulse normal contour, Supple LUNGS: Lungs clear to auscultation, Good diaphragmatic excursion CARDIAC: Normal S1 and S2; no rubs, murmurs, or gallops ABDOMEN: Abdomen soft, non-tender, BS normal, No masses or organomegaly EXTREMITIES: Extremities normal, no deformities, edema, clubbing or skin discoloration. Good capillary refill., No ulcers NEURO: Bilateral knee jerk reflexes depressed however symmetric. Sensation grossly intact, Cranial nerves II-XII intact PULSES: 2+ radial, 2+ carotid Rest of the exam is non contributory Internal Medicine: Result - Labs CBC & Chem 7: 02/18/18 05:00 02/18/18 05:00 Labs: Short CBC 02/18/18 Range/Units 05:00 WBC 6.6 (4.3-11.1) K/mcL Hgb 12.4 (11.5-15.4) g/dL Hct 37.2 (35.3-44.9) % Plt Count 249 (140-400) K/mcL Neutrophils # 2.9 (1.6-8.9) K/mcL BMP 02/18/18 05:00 Sodium 137 Potassium 4.0 Chloride 101 Carbon Dioxide 26 BUN 16 Creatinine 0.82 Glucose 110 H Calcium 9.7 Liver Function 02/18/18 Range/Units 05:00 Total Bilirubin 1.0 (0.3-1.0) mg/dL AST 27 (13-39) Units/L ALT 35 (7-52) Units/L Alkaline Phosphatase 61 (34-104) Units/L Albumin 4.2 (3.5-5.7) g/dL - Impressions Impressions Liver Ultrasound 02/17/18 20:00 IMPRESSION: Hepatic steatosis. Mild dilation of the common duct can be a normal finding following cholecystectomy. Correlate for laboratory evidence of biliary obstruction. D/ / Michael Garcia MD / Michael Garcia MD Interpreting Provider: Michael Garcia MD - VTE Documentation of Mechanical Device: Intermittent pneumatic compression device Consult Discharge Plan - Plan Referrals: America Weeks MD [Partnered Physician] - 03/07/18 9:00 am (Please Arrive 15 minutes prior to appointment.) Willow Golden CNP [Advanced Practice Nurse] - 02/21/18 3:15 pm
--- NOTE | 2018-02-18 15:27 | Consult Note ---
Date of Encounter: 02/18/18 Time of Encounter: 14:00 Assessment & Recommendation (1) Bipolar affective disorder, current episode depressed Current visit: Yes Status: Acute Qualifiers: Current episode severity: moderate Qualified Code(s): F31.32 - Bipolar disorder, current episode depressed, moderate (2) Suicidal ideation Current visit: Yes Status: Resolved (3) ETOH abuse Current visit: Yes Status: Acute Assessment & Recommendation: patient with intoxication and withdrawal stabilization. History of Present Illness Patient: new to practice Requesting Physician: Tahira Regalado MD Reason for consult: having suicidal ideation upon admission History of present illness: Ms. Mckeon is a 62 year old female was consulted today for having suicidal ideation upon admission. She was evaluated at her bedside, calm ,cooperative , dysphoric white female with h/o depression , Bipolar, alcohol use, HTN and suicidal ideations. At present states since her dog passed on 01/31 she has been drinking daily and missing her dog also before her dog , her psychistrist has been in process of changing her medication , she was planning to give Pristiq and dc effexor. she has been depress a lot lately and had suicidal thoughts, at present she is not suicidal , states i am planning to get another pet and as lives alone , needs some company. she denies any problems with Alcohol , states was thinking of dog and depress and thought alcohol will ease her pain and did not wanted to live so drinking a lot till her friend came to visit and bought her to ED. She has had hallucinations and still hears radio when not on and sometimes music , no visual golden. no paranoia. she has anxiety which is generalized and increase worries. she remains depress and somewhat hopeless. Family h/o bipolar and alcholism. Social h/o she is divorcee , lives alone, has 40 yr old daughter from rape whom she gave up for adaption at age 14 but her daughter found her after 40 yrs and she talks to her and has grand and great grand children. A/P Bipolar Affective Disorder depressed Alcohol intoxication and withdrawal stabilization hypothyroidism newly dx which can contribute to increase depression REC: Patient at present is not suicidal /homicidal/ Please increase Pristiq to100 mg continue alcohol withdrawal stabilization will follow Thank you for consult and involving in your patient care. CC: Tahira Regalado MD Past Med Surg Social Fam HX - Past Medical History Medical history: hypertension - Past Psychiatric History Psychiatric history: Reports: bipolar, depression, previous psychiatric hospitalization Family psychiatric history: Yes Family History of Suicide: None - Past Surgical History Surgical History: appendectomy, cholecystectomy, hysterectomy, other ( Laparoscopy 7, cyst removed from bowel.) - Social History Smoking Status: Never smoker Smokeless Tobacco Status: No Alcohol use: occasionally Drug use: none - Family History Mother Living Status: Still Living Hx Family Cardiac Disorders: Yes (HTN) Hx Family Respiratory Disorders: No Hx Family Cancer: Yes ([place]) Hx Family Genitourinary Disorders: No Hx Family Endocrine Disorder: Yes (Thyroid) Hx Family Musculoskeletal Disorders: Yes (OA) Hx Family Neuromuscular Disorders: No Hx Family Neurologic Disorders: No Hx Family HEENT Disorders: No Hx Family Autoimmune Disorders: No Hx Family Reproductive Disorders: No Hx Family Psychosocial Disorders: No Medications & Allergies Dextroamphetamine Sulfate [Dexedrine] 10 mg PO QID 04/29/17 [History] Gabapentin [Neurontin] 800 mg PO BID 04/29/17 [History] Metoprolol [Lopressor] 25 mg PO BID 04/29/17 [History] diazePAM [Valium] 5 mg PO BID PRN 04/29/17 [History] Desvenlafaxine Succinate [Pristiq ER] 50 mg PO DAILY 02/17/18 [History] Omeprazole [PriLOSEC] 20 mg PO DAILY 02/17/18 [History] risperiDONE [RisperDAL] 1.5 mg PO DAILY 02/17/18 [History] 3 Allergy/AdvReac Type Severity Reaction Status Date / Time Hydroxychloroquine AdvReac Vomiting Verified 02/17/18 11:10 NSAIDS (Non-Steroidal AdvReac Nausea Verified 02/17/18 11:10 Anti-Inflamma Review of Systems Psychiatric: Reports: depression, anxiety, hopelessness Psychiatry Exam - Constitutional Vitals: Temp Pulse Resp BP Pulse Ox 98.3 F 63 16 112/82 95 02/18/18 08:09 02/18/18 08:09 02/18/18 08:09 02/18/18 08:09 02/18/18 08:09 General appearance: average - Musculoskeletal Station: relaxed - Psychiatric Patient Orientation: Yes Person, Yes Time, Yes Place Level of alertness: Alert Behavior: cooperative, withdrawn Psychomotor activity: Slowed Eye Contact: Maintains Eye Contact Mood Description: Depressed, Anxious Affect description: congruent with mood, dysphoric Speech Volume: Normal, Soft/Quiet Speech pattern: normal rate, normal rhythm, normal tone, fluent, spontaneous Language & Vocabulary: consistent with education Thought Process: Slowed Thinking Thought Content: Yes Guilt Perceptual Disturbances: No Auditory hallucinations, No Visual hallucinations Attention Span Ability: Capable of Focused Attention Memory Description: Grossly Intact Patient Reliability: Reliable Historian Fund of knowledge: Yes abstraction ability, Yes aware of current events Intelligence Estimate: Average Judgment: Fair Insight: Partial Results - Drug Levels and Toxicology Drug Levels and Toxicology: Drug Levels and Toxicity 02/18/18 05:00 Ethyl Alcohol < 10 - Labs Labs: Laboratory Last Values WBC 6.6 K/mcL (4.3-11.1) 02/18/18 05:00 RBC 3.87 M/mcL (3.82-4.97) 02/18/18 05:00 Hgb 12.4 g/dL (11.5-15.4) 02/18/18 05:00 Hct 37.2 % (35.3-44.9) 02/18/18 05:00 MCV 96.1 fL (83.0-100.0) 02/18/18 05:00 MCH 32.0 pg (28.0-33.3) 02/18/18 05:00 MCHC 33.3 g/dL (31.6-35.5) 02/18/18 05:00 RDW 13.2 % (11.5-14.5) 02/18/18 05:00 Plt Count 249 K/mcL (140-400) 02/18/18 05:00 MPV 9.7 fL (9.4-12.4) 02/18/18 05:00 Immature Gran % 0.3 % (0-4) 02/18/18 05:00 Seg Neutrophils % 44.3 % 02/18/18 05:00 Lymphocytes % 34.0 % 02/18/18 05:00 Monocytes % 8.7 % 02/18/18 05:00 Eosinophils % 11.9 % 02/18/18 05:00 Basophils % 0.8 % 02/18/18 05:00 Neutrophils # 2.9 K/mcL (1.6-8.9) 02/18/18 05:00 Lymphocytes # 2.2 K/mcL (0.6-4.6) 02/18/18 05:00 Monocytes # 0.6 K/mcL (0.0-1.3) 02/18/18 05:00 Eosinophils # 0.8 K/mcL (0.0-0.6) H 02/18/18 05:00 Basophils # 0.1 K/mcL (0.0-0.2) 02/18/18 05:00 Sodium 137 mEq/L (136-145) 02/18/18 05:00 Potassium 4.0 mEq/L (3.5-5.1) 02/18/18 05:00 Chloride 101 mEq/L (98-107) 02/18/18 05:00 Carbon Dioxide 26 mEq/L (23-29) 02/18/18 05:00 BUN 16 mg/dL (8-23) 02/18/18 05:00 Creatinine 0.82 mg/dL (0.60-1.20) 02/18/18 05:00 Est GFR ( Amer) > 60 (> 60) 02/18/18 05:00 Est GFR (Non-Af Amer) > 60 (> 60) 02/18/18 05:00 BUN/Creatinine Ratio 20 (6-26) 02/18/18 05:00 Glucose 110 mg/dL (70-105) H 02/18/18 05:00 Calculated Osmolality 286 (280-300) 02/18/18 05:00 Calcium 9.7 mg/dL (8.6-10.3) 02/18/18 05:00 Magnesium 1.8 mg/dL (1.6-2.6) 02/17/18 08:09 Total Bilirubin 1.0 mg/dL (0.3-1.0) 02/18/18 05:00 Direct Bilirubin 0.1 mg/dL (0.0-0.2) 02/17/18 08:09 Indirect Bilirubin 0.5 mg/dL (0.0-1.2) 02/17/18 08:09 AST 27 Units/L (13-39) 02/18/18 05:00 ALT 35 Units/L (7-52) 02/18/18 05:00 Alkaline Phosphatase 61 Units/L (34-104) 02/18/18 05:00 Ammonia 33 mcmol/L (16-53) 02/17/18 08:09 Serum Total Protein 6.8 g/dL (6.4-8.9) 02/18/18 05:00 Albumin 4.2 g/dL (3.5-5.7) 02/18/18 05:00 Globulin 2.6 g/dL (2.4-3.5) 02/18/18 05:00 Albumin/Globulin Ratio 1.6 (1.1-2.2) 02/18/18 05:00 Triglycerides 160 mg/dL (< 150) H 02/18/18 05:00 Cholesterol 267 mg/dL (< 200) H 02/18/18 05:00 LDL Cholesterol, Calc 148 mg/dL (0-99) H 02/18/18 05:00 VLDL Cholesterol, Calc 32 mg/dL (< 31) H 02/18/18 05:00 HDL Cholesterol 87 mg/dL (40-59) H 02/18/18 05:00 Cholesterol/HDL Ratio 3.1 (0-4.9) 02/18/18 05:00 TSH 11.487 mcIU/mL (0.340-5.600) H 02/17/18 02:48 Free T4 0.61 ng/dl (0.70-2.00) L 02/17/18 08:09 Urine Color Yellow (Yellow) 02/16/18 21:43 Urine Clarity Clear (Clear) 02/16/18 21:43 Urine pH 6.0 pH Units (5.0-8.0) 02/16/18 21:43 Ur Specific [place] 1.012 (1.010-1.025) 02/16/18 21:43 Urine Protein Negative mg/dL (Neg-Trace) 02/16/18 21:43 Urine Glucose (UA) Normal mg/dL (Normal) 02/16/18 21:43 Urine Ketones Negative mg/dL (Negative) 02/16/18 21:43 Urine Blood Negative (Negative) 02/16/18 21:43 Urine Nitrite Negative (Negative) 02/16/18 21:43 Urine Bilirubin Negative (Negative) 02/16/18 21:43 Urine Urobilinogen Normal mg/dL (Normal) 02/16/18 21:43 Ur Leukocyte Esterase Negative (Negative) 02/16/18 21:43 Ur Culture Indicated? NO (NO) 02/16/18 21:43 Salicylates < 2.5 mg/dL (15.0-30.0) L 02/16/18 21:26 Urine Opiates Screen Negative ng/mL (Efpnqh=881) 02/16/18 21:43 Acetaminophen < 10 mcg/mL (10-20) L 02/16/18 21:26 Ur Barbiturates Screen Negative ng/mL (Sqrjki=010) 02/16/18 21:43 Ur Phencyclidine Scrn Negative ng/mL (Cutoff=25) 02/16/18 21:43 Ur Amphetamines Screen Negative ng/mL (Jmvekb=8123) 02/16/18 21:43 U Benzodiazepines Scrn Positive ng/mL (Pwaspm=934) H 02/16/18 21:43 Urine Cocaine Screen Negative ng/mL (Cutoff= 300) 02/16/18 21:43 U Marijuana (THC) Screen Negative ng/mL (Cutoff = 50) 02/16/18 21:43 Ethyl Alcohol < 10 mg/dL (Less than 10) 02/18/18 05:00 Specimen Rejected Hemolyzed 02/17/18 07:23 - Impressions Impressions Liver Ultrasound 02/17/18 20:00 IMPRESSION: Hepatic steatosis. Mild dilation of the common duct can be a normal finding following cholecystectomy. Correlate for laboratory evidence of biliary obstruction. D/ / Michael Garcia MD / Michael Garcia MD Interpreting Provider: Michael Garcia MD Consult Discharge Plan - Plan Referrals: America Weeks MD [Partnered Physician] - 03/07/18 9:00 am (Please Arrive 15 minutes prior to appointment.) Willow Golden CNP [Advanced Practice Nurse] - 02/21/18 3:15 pm
[2018-02-18] MEDS: RisperiDAL 3 MG TABLET PO SCH (21:10)
[2018-02-18] MEDS: diazePAM 5 MG TABLET PO PRN (21:16)
[2018-02-19] MEDS: Gabapentin 400 MG CAPSULE PO SCH ×2 (09:34→21:09)
[2018-02-19] MEDS: Folic Acid 1 MG TABLET PO SCH (09:35)
[2018-02-19] MEDS: Thiamine (B-1) 100 MG TABLET PO SCH (09:35)
[2018-02-19] MEDS: Venlafaxine XR (24 HR) 75 MG CAP.ER.24H PO SCH (09:35)
[2018-02-19] MEDS ORDERED: Venlafaxine XR (24 HR) 75 MG CAP.ER.24H PO SCH (10:30)
--- NOTE | 2018-02-19 10:36 | Internal Med Progress Note ---
Date of Encounter: 02/19/18 Time of Encounter: 10:30 - Assessment and plan (1) Suicidal ideation Current Visit: Yes Status: Resolved Assessment and plan: Increase Pristiq as per psychiatry recommendations. Continue Risperidal. Patient reported to RN that she takes Prozac. Will defer to psychiatry. RN is aware. (2) ETOH abuse Current Visit: Yes Status: Acute Assessment and plan: No evidence of withdrawal. (3) Elevated LFTs Current Visit: Yes Status: Resolved (4) Hypertension Current Visit: Yes Status: Acute (5) Hypothyroidism Current Visit: Yes Status: Acute Qualifiers: Hypothyroidism type: acquired Qualified Code(s): E03.9 - Hypothyroidism, unspecified (6) Hepatic steatosis Current Visit: Yes Status: Acute (7) DVT prophylaxis Current Visit: Yes Status: Acute - Time Spent With Patient Total time spent is greater than 50% in coordination of care (as documented) at patient's floor/unit and/or counseling patient: 25 - 35 minutes - Subjective Interval history: she denies suicidal ideation. No events overnight. - Constitutional Vitals: Temp Pulse Resp BP Pulse Ox 97.6 F 66 16 135/66 96 02/19/18 06:11 02/19/18 06:11 02/19/18 06:11 02/19/18 06:11 02/19/18 06:11 Exam: Physical exam Gen: Comfortable, laying in bed, in no visible distress HEENT: Normocephalic, atraumatic. No conjunctival icterus. Moist oral mucosa. Neck: Supple Lungs: Clear to auscultation, no foreign sounds Heart: Normal S1-S2, no murmurs rubs or gallops Abdomen: Normoactive bowel sounds, no guarding rigidity or tenderness Extremities: No edema clubbing or cyanosis Neuro: Alert oriented 3, no focal deficits Skin: No skin lesions Internal Medicine: Result - Labs CBC & Chem 7: 02/18/18 05:00 02/18/18 05:00 - VTE Documentation of Mechanical Device: Intermittent pneumatic compression device Consult Discharge Plan - Plan Referrals: America Weeks MD [Partnered Physician] - 03/07/18 9:00 am (Please Arrive 15 minutes prior to appointment.) Willow Golden HIGH CLIMBER [Advanced Practice Nurse] - 02/21/18 3:15 pm
--- NOTE | 2018-02-19 13:30 | Consult Note ---
Date of Encounter: 02/19/18 Time of Encounter: 12:55 Assessment & Recommendation (1) Bipolar affective disorder, current episode depressed Current visit: Yes Status: Acute Qualifiers: Current episode severity: moderate Qualified Code(s): F31.32 - Bipolar disorder, current episode depressed, moderate (2) Suicidal ideation Current visit: Yes Status: Resolved Assessment & Recommendation: patient not in danger to self/others,at present. (3) ETOH abuse Current visit: Yes Status: Acute History of Present Illness Patient: new to practice Requesting Physician: Tahira Regalado MD Reason for consult: follow up History of present illness: Ms. Mckeon is a 62 year old female who was followed up , today at her bedside , eating her lunch states feeling hungry , feels better , states she talked ti her Boy Friend who will be with her once discharged. she denies suicidal ideations , she has no alcohol at home and will continue to be sober but is interested in out patient rehab and counselling. She is still depress but not hopeless infact is hopeful and has short term plans. A/P dEPRESSION rec: SHE IS on Effexor which was dc secondary to BE non effective. Patient can take H er home medication Pristiq 50 mg and she bought with her. dc effexor 75 mg. She is also on prozac as per [address] Weeks is prescribing it she has not taken since here. Will START PROZAC 40 MG PO AM TODAY THEN 60 MG PO TOMORROW. AT PRESENT NOT SUICIDAL/HOMICIDAL AND HAS GOOD SUPPORT. CAN DC 1:1 patient does not need psych inpatient and is able to sign for safety. COUNTY COURT JUDGE TO GET OUT PAtient rehab and counselling. If possible early appointment with her psychiatrist Dr Weeks . Thank you for consult and involving in your patient care. can call prn. CC: Tahira Regalado MD Past Med Surg Social Fam HX - Past Medical History Medical history: hypertension - Past Psychiatric History Psychiatric history: Reports: anxiety, depression Family psychiatric history: Yes Family History of Suicide: None - Past Surgical History Surgical History: appendectomy, cholecystectomy, hysterectomy, other ( Laparoscopy 7, cyst removed from bowel.) - Social History Smoking Status: Never smoker Smokeless Tobacco Status: No Alcohol use: occasionally Drug use: none - Family History Mother Living Status: Still Living Hx Family Cardiac Disorders: Yes (HTN) Hx Family Respiratory Disorders: No Hx Family Cancer: Yes ([place]) Hx Family Genitourinary Disorders: No Hx Family Endocrine Disorder: Yes (Thyroid) Hx Family Musculoskeletal Disorders: Yes (OA) Hx Family Neuromuscular Disorders: No Hx Family Neurologic Disorders: No Hx Family HEENT Disorders: No Hx Family Autoimmune Disorders: No Hx Family Reproductive Disorders: No Hx Family Psychosocial Disorders: No Medications & Allergies Dextroamphetamine Sulfate [Dexedrine] 10 mg PO QID 04/29/17 [History] Gabapentin [Neurontin] 800 mg PO BID 04/29/17 [History] Metoprolol [Lopressor] 25 mg PO BID 04/29/17 [History] diazePAM [Valium] 5 mg PO BID PRN 04/29/17 [History] Desvenlafaxine Succinate [Pristiq ER] 50 mg PO DAILY 02/17/18 [History] Omeprazole [PriLOSEC] 20 mg PO DAILY 02/17/18 [History] risperiDONE [RisperDAL] 1.5 mg PO DAILY 02/17/18 [History] 3 Allergy/AdvReac Type Severity Reaction Status Date / Time Hydroxychloroquine AdvReac Vomiting Verified 02/17/18 11:10 NSAIDS (Non-Steroidal AdvReac Nausea Verified 02/17/18 11:10 Anti-Inflamma Review of Systems Psychiatric: Reports: depression, anxiety Psychiatry Exam - Constitutional Vitals: Temp Pulse Resp BP Pulse Ox 97.6 F 66 16 135/66 96 02/19/18 06:11 02/19/18 06:11 02/19/18 06:11 02/19/18 06:11 02/19/18 06:11 General appearance: age & developmentally appropriate - Musculoskeletal Station: other Strength & Tone: normal for patient - Psychiatric Patient Orientation: Yes Person, Yes Time, Yes Place Level of alertness: Alert Behavior: calm, cooperative Psychomotor activity: Normal Eye Contact: Maintains Eye Contact Mood Description: Depressed Affect description: congruent with mood, full range Speech Volume: Normal Speech pattern: normal rate Language & Vocabulary: consistent with education Thought Process: Linear, Goal Oriented Thought Content: No Suicidal ideation, No Homicidal ideation, No Overt delusions Perceptual Disturbances: No Auditory hallucinations, No Visual hallucinations Attention Span Ability: Capable of Focused Attention Memory Description: Grossly Intact Patient Reliability: Reliable Historian Fund of knowledge: Yes abstraction ability, Yes aware of current events Intelligence Estimate: Average Judgment: Fair Insight: Partial Results - Labs Labs: Laboratory Last Values WBC 6.6 K/mcL (4.3-11.1) 02/18/18 05:00 RBC 3.87 M/mcL (3.82-4.97) 02/18/18 05:00 Hgb 12.4 g/dL (11.5-15.4) 02/18/18 05:00 Hct 37.2 % (35.3-44.9) 02/18/18 05:00 MCV 96.1 fL (83.0-100.0) 02/18/18 05:00 MCH 32.0 pg (28.0-33.3) 02/18/18 05:00 MCHC 33.3 g/dL (31.6-35.5) 02/18/18 05:00 RDW 13.2 % (11.5-14.5) 02/18/18 05:00 Plt Count 249 K/mcL (140-400) 02/18/18 05:00 MPV 9.7 fL (9.4-12.4) 02/18/18 05:00 Immature Gran % 0.3 % (0-4) 02/18/18 05:00 Seg Neutrophils % 44.3 % 02/18/18 05:00 Lymphocytes % 34.0 % 02/18/18 05:00 Monocytes % 8.7 % 02/18/18 05:00 Eosinophils % 11.9 % 02/18/18 05:00 Basophils % 0.8 % 02/18/18 05:00 Neutrophils # 2.9 K/mcL (1.6-8.9) 02/18/18 05:00 Lymphocytes # 2.2 K/mcL (0.6-4.6) 02/18/18 05:00 Monocytes # 0.6 K/mcL (0.0-1.3) 02/18/18 05:00 Eosinophils # 0.8 K/mcL (0.0-0.6) H 02/18/18 05:00 Basophils # 0.1 K/mcL (0.0-0.2) 02/18/18 05:00 Sodium 137 mEq/L (136-145) 02/18/18 05:00 Potassium 4.0 mEq/L (3.5-5.1) 02/18/18 05:00 Chloride 101 mEq/L (98-107) 02/18/18 05:00 Carbon Dioxide 26 mEq/L (23-29) 02/18/18 05:00 BUN 16 mg/dL (8-23) 02/18/18 05:00 Creatinine 0.82 mg/dL (0.60-1.20) 02/18/18 05:00 Est GFR ( Amer) > 60 (> 60) 02/18/18 05:00 Est GFR (Non-Af Amer) > 60 (> 60) 02/18/18 05:00 BUN/Creatinine Ratio 20 (6-26) 02/18/18 05:00 Glucose 110 mg/dL (70-105) H 02/18/18 05:00 Calculated Osmolality 286 (280-300) 02/18/18 05:00 Calcium 9.7 mg/dL (8.6-10.3) 02/18/18 05:00 Magnesium 1.8 mg/dL (1.6-2.6) 02/17/18 08:09 Total Bilirubin 1.0 mg/dL (0.3-1.0) 02/18/18 05:00 Direct Bilirubin 0.1 mg/dL (0.0-0.2) 02/17/18 08:09 Indirect Bilirubin 0.5 mg/dL (0.0-1.2) 02/17/18 08:09 AST 27 Units/L (13-39) 02/18/18 05:00 ALT 35 Units/L (7-52) 02/18/18 05:00 Alkaline Phosphatase 61 Units/L (34-104) 02/18/18 05:00 Ammonia 33 mcmol/L (16-53) 02/17/18 08:09 Serum Total Protein 6.8 g/dL (6.4-8.9) 02/18/18 05:00 Albumin 4.2 g/dL (3.5-5.7) 02/18/18 05:00 Globulin 2.6 g/dL (2.4-3.5) 02/18/18 05:00 Albumin/Globulin Ratio 1.6 (1.1-2.2) 02/18/18 05:00 Triglycerides 160 mg/dL (< 150) H 02/18/18 05:00 Cholesterol 267 mg/dL (< 200) H 02/18/18 05:00 LDL Cholesterol, Calc 148 mg/dL (0-99) H 02/18/18 05:00 VLDL Cholesterol, Calc 32 mg/dL (< 31) H 02/18/18 05:00 HDL Cholesterol 87 mg/dL (40-59) H 02/18/18 05:00 Cholesterol/HDL Ratio 3.1 (0-4.9) 02/18/18 05:00 TSH 11.487 mcIU/mL (0.340-5.600) H 02/17/18 02:48 Free T4 0.61 ng/dl (0.70-2.00) L 02/17/18 08:09 Urine Color Yellow (Yellow) 02/16/18 21:43 Urine Clarity Clear (Clear) 02/16/18 21:43 Urine pH 6.0 pH Units (5.0-8.0) 02/16/18 21:43 Ur Specific [place] 1.012 (1.010-1.025) 02/16/18 21:43 Urine Protein Negative mg/dL (Neg-Trace) 02/16/18 21:43 Urine Glucose (UA) Normal mg/dL (Normal) 02/16/18 21:43 Urine Ketones Negative mg/dL (Negative) 02/16/18 21:43 Urine Blood Negative (Negative) 02/16/18 21:43 Urine Nitrite Negative (Negative) 02/16/18 21:43 Urine Bilirubin Negative (Negative) 02/16/18 21:43 Urine Urobilinogen Normal mg/dL (Normal) 02/16/18 21:43 Ur Leukocyte Esterase Negative (Negative) 02/16/18 21:43 Ur Culture Indicated? NO (NO) 02/16/18 21:43 Salicylates < 2.5 mg/dL (15.0-30.0) L 02/16/18 21:26 Urine Opiates Screen Negative ng/mL (Rqsuoa=842) 02/16/18 21:43 Acetaminophen < 10 mcg/mL (10-20) L 02/16/18 21:26 Ur Barbiturates Screen Negative ng/mL (Nzebyl=293) 02/16/18 21:43 Ur Phencyclidine Scrn Negative ng/mL (Cutoff=25) 02/16/18 21:43 Ur Amphetamines Screen Negative ng/mL (Xzmkof=3591) 02/16/18 21:43 U Benzodiazepines Scrn Positive ng/mL (Beoctv=993) H 02/16/18 21:43 Urine Cocaine Screen Negative ng/mL (Cutoff= 300) 02/16/18 21:43 U Marijuana (THC) Screen Negative ng/mL (Cutoff = 50) 02/16/18 21:43 Ethyl Alcohol < 10 mg/dL (Less than 10) 02/18/18 05:00 Specimen Rejected Hemolyzed 02/17/18 07:23 Consult Discharge Plan - Plan Referrals: America Weeks MD [Partnered Physician] - 03/07/18 9:00 am (Please Arrive 15 minutes prior to appointment.) Willow Golden CNP [Advanced Practice Nurse] - 02/21/18 3:15 pm
[2018-02-19] MEDS ORDERED: FLUoxetine 20 MG CAPSULE PO ONE (17:09)
--- NOTE | 2018-02-19 17:10 | Electrocardiograph Report ---
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
[2018-02-19] MEDS: diazePAM 5 MG TABLET PO PRN (21:09)
[2018-02-19] MEDS: RisperiDAL 3 MG TABLET PO SCH (21:10)
[2018-02-20] MEDS: Thiamine (B-1) 100 MG TABLET PO SCH (08:29)
[2018-02-20] MEDS: Gabapentin 400 MG CAPSULE PO SCH ×2 (08:29→21:12)
[2018-02-20] MEDS: Folic Acid 1 MG TABLET PO SCH (08:29)
[2018-02-20] MEDS: PRISTIQ 50 MG PO SCH (08:30)
[2018-02-20] MEDS: FLUoxetine 20 MG CAPSULE PO SCH (08:30)
--- NOTE | 2018-02-20 10:26 | Internal Med Progress Note ---
Date of Encounter: 02/20/18 Time of Encounter: 10:00 - Assessment and plan (1) Suicidal ideation Current Visit: Yes Status: Resolved Assessment and plan: Plan Presently on fluoxetine, Risperdal and Valium as needed. Effexor stopped yesterday after psychiatry recommended to do so. Arrange for social service manager tomorrow prior to discharge. Appointment with Dr. staples to be arranged tomorrow. Appreciate psychiatry input. (2) ETOH abuse Current Visit: Yes Status: Acute Assessment and plan: No evidence of withdrawal. (3) Elevated LFTs Current Visit: Yes Status: Resolved Assessment and plan: Most likely from the alcohol abuse. They are nicely improving with hydration. Avoid hepatotoxic medicine. Close monitoring. (4) Hypertension Current Visit: Yes Status: Acute Assessment and plan: Close monitoring. Continue home medicine (5) Hypothyroidism Current Visit: Yes Status: Acute Assessment and plan: Newly diagnosed, adjust Synthroid to 50 g daily. Will need outpatient TSH in 6 weeks Qualifiers: Hypothyroidism type: acquired Qualified Code(s): E03.9 - Hypothyroidism, unspecified (6) Hepatic steatosis Current Visit: Yes Status: Acute (7) DVT prophylaxis Current Visit: Yes Status: Acute Assessment and plan: SCDs - Time Spent With Patient Total time spent is greater than 50% in coordination of care (as documented) at patient's floor/unit and/or counseling patient: 25 - 35 minutes - Subjective Interval history: She denies suicidal ideation. No events overnight. 1:1 discontinued. - Constitutional Vitals: Temp Pulse Resp BP Pulse Ox 97.7 F 60 16 125/77 98 02/20/18 07:27 02/20/18 07:27 02/20/18 07:27 02/20/18 07:27 02/20/18 07:27 Exam: Physical exam Gen: Comfortable, laying in bed, in no visible distress HEENT: Normocephalic, atraumatic. No conjunctival icterus. Moist oral mucosa. Neck: Supple Lungs: Clear to auscultation, no foreign sounds Heart: Normal S1-S2, no murmurs rubs or gallops Abdomen: Normoactive bowel sounds, no guarding rigidity or tenderness Extremities: No edema clubbing or cyanosis Neuro: Alert oriented 3, no focal deficits Skin: No skin lesions Internal Medicine: Result - Labs CBC & Chem 7: 02/18/18 05:00 02/18/18 05:00 - VTE Documentation of Mechanical Device: Intermittent pneumatic compression device Consult Discharge Plan - Plan Referrals: America Weeks MD [Partnered Physician] - 03/07/18 9:00 am (Please Arrive 15 minutes prior to appointment.) Willow Golden CNP [Advanced Practice Nurse] - 02/21/18 3:15 pm
[2018-02-20] MEDS: RisperiDAL 3 MG TABLET PO SCH (21:12)
[2018-02-20] MEDS: diazePAM 5 MG TABLET PO PRN (21:12)
[2018-02-21] MEDS: Gabapentin 400 MG CAPSULE PO SCH (08:15)
[2018-02-21] MEDS: FLUoxetine 20 MG CAPSULE PO SCH (08:15)
[2018-02-21] MEDS: PRISTIQ 50 MG PO SCH (08:15)
[2018-02-21] MEDS: Thiamine (B-1) 100 MG TABLET PO SCH (08:16)
[2018-02-21] MEDS: Folic Acid 1 MG TABLET PO SCH (08:16)
--- NOTE | 2018-02-21 10:14 | Discharge Summary ---
- NOTES TO OUTPATIENT PROVIDER Notes to Outpatient Provider: Follow-up with psychiatry and social work Date of Encounter: 02/21/18 Time of Encounter: 08:30 - Discharge Diagnosis (1) Suicidal ideation Priority: Primary Status: Resolved Assessment and Plan: Patient seen by psychiatry inpatient homicidal. She has good support at home. Plan #1 Social work and psychiatry follow-up as arranged #2 continue Prozac, Pristiq and Risperdal. (2) ETOH abuse Priority: Secondary Status: Acute Assessment and Plan: No evidence of withdrawal. (3) Elevated LFTs Priority: Secondary Status: Resolved Assessment and Plan: Most likely from the alcohol abuse. They are nicely improving with hydration. Avoid hepatotoxic medicine. Close monitoring. (4) Hypertension Priority: Secondary Status: Acute Assessment and Plan: Close monitoring. Continue home medicine (5) Hypothyroidism Priority: Secondary Status: Acute Assessment and Plan: Newly diagnosed, adjust Synthroid to 50 g daily. Will need outpatient TSH in 6 weeks Qualifiers: Hypothyroidism type: acquired Qualified Code(s): E03.9 - Hypothyroidism, unspecified (6) Hepatic steatosis Priority: Secondary Status: Acute Hospital course: Ms. Mckeon is a 62 year old female with history of hypertension, multiple psych disorders such as bipolar, seasonal affective, depression with suicidal ideation in the past but no attempt came to emergency room with concern of having suicidal ideation today morning. She lost her dog few weeks ago and thinks she age and depression. She does not have close family support. In ER abnormal lab such as raised alcohol level, raised LFT where noticed. There is no past lab to compare with. She never had history of alcohol abuse but started to drink recently as she lost her dog. No history of DVTs in the past. She is also not on active DTs. ER physician plan to transfer inpatient psych facility. Psych facility was concerned about placement considering the patient downplayed her alcohol use. Her liver function testing is elevated facilities are deferring considering she was intoxicated and does describe using alcohol. They are concerned that she may go into withdrawal's. Therefore ER physician called on-call hospitalists for further management and medical clearance and transfer to psych facility eventually. Psychiatry saw the patient. She was initially monitored 1:1. This was later discontinued. we made adjustments to her and to psychotics and antidepressants based on psychiatry recommendations. She is scheduled see psychiatrist and social service manager follow-up. Discharge discussed with: patient - Time Spent with Patient Total time spent providing and/or coordinating discharge services: Greater than 30 minutes - Discharge Medications Prescriptions: FLUoxetine HCl [Prozac] 60 mg PO DAILY #30 capsule Levothyroxine [Synthroid] 50 mcg PO 0630 #30 tablet Home Medications: Gabapentin [Neurontin] 800 mg PO BID 04/29/17 [History] Metoprolol [Lopressor] 25 mg PO BID 04/29/17 [History] diazePAM [Valium] 5 mg PO BID PRN 04/29/17 [History] Desvenlafaxine Succinate [Pristiq] 50 mg PO DAILY 02/17/18 [History] Omeprazole [PriLOSEC] 20 mg PO DAILY 02/17/18 [History] risperiDONE [RisperDAL] 1.5 mg PO DAILY 02/17/18 [History] FLUoxetine HCl [Prozac] 60 mg PO DAILY #30 capsule 02/21/18 [Rx] Levothyroxine [Synthroid] 50 mcg PO 0630 #30 tablet 02/21/18 [Rx] Allergies/Adverse Reactions: 3 Allergy/AdvReac Type Severity Reaction Status Date / Time Hydroxychloroquine AdvReac Vomiting Verified 02/17/18 11:10 NSAIDS (Non-Steroidal AdvReac Nausea Verified 02/17/18 11:10 Anti-Inflamma Date of admission: 02/17/18 11:34 Primary care physician: PCP NONE Consults: 02/17/18 12:24 Consult to Competency Evaluated Nurse Aide [CONS] Routine Reason for Consult: Discharge plan 02/17/18 12:27 Consult to Competency Evaluated Nurse Aide [CONS] Routine Reason for Consult: Discharge plan 02/17/18 15:38 Consult to Psychiatry [CONS] Routine Consulting Provider: Psychiatry Vicki Reason for Consult: Having suicidal ideation upon admission Call Completed: No Discharging clinician: Brianne Barrios Anticipated date of discharge: 02/21/18 - Constitutional Vitals: Temp Pulse Resp BP Pulse Ox 98.1 F 66 14 130/83 97 02/21/18 07:05 02/21/18 07:05 02/21/18 07:05 02/21/18 07:05 02/21/18 07:05 Exam: Physical exam Gen: Comfortable, laying in bed, in no visible distress HEENT: Normocephalic, atraumatic. No conjunctival icterus. Moist oral mucosa. Neck: Supple Lungs: Clear to auscultation, no foreign sounds Heart: Normal S1-S2, no murmurs rubs or gallops Abdomen: Normoactive bowel sounds, no guarding rigidity or tenderness Extremities: No edema clubbing or cyanosis Neuro: Alert oriented 3, no focal deficits Skin: No skin lesions - Patient Status Disposition: Home, Self-Care Condition: Good - Discharge Instructions Follow Up With: America Weeks MD [Partnered Physician] - 03/07/18 9:00 am (Please Arrive 15 minutes prior to appointment.) Willow Golden CNP [Advanced Practice Nurse] - 02/25/18 1:00 pm - Diet and Activity Activity: resume usual activities as tolerated Diet: advance to your usual diet - VTE Documentation of Mechanical Device: Intermittent pneumatic compression device
[2018-02-21 14:48] VITALS: BP 114/76
== END 2018-02-21 16:30 | disposition home or self-care (01) ==
LOC: 3ANU 20:52 → EMEROO 20:52 → 3ANU 02-17 12:26
PROVIDERS: ADMIT Student in an Organized Health Care Education/Training Program; ATTEND Student in an Organized Health Care Education/Training Program